=== PATIENT | female | born 1960 | race Caucasian/White ===

== ENCOUNTER → 2020-07-28 11:46 | Outpatient (CLI) | payer OTHER, MEDICAID, SELFPAY ==
--- NOTE | 2020-07-28 11:48 | DI.RAD.S_ITS ---
PROCEDURE: XR KNEE RT 3V INDICATIONS: medial/inferior aspect r/o bony abnormality TECHNIQUE: 3 views of the knee were acquired. COMPARISON: None. FINDINGS: Bones: No fractures or dislocations. No suspicious bony lesions. Mild tricompartmental osteoarthritis is seen more prominent in medial femoral tibial compartment. Soft tissues: Small joint effusion. Small calcification is seen within superficial soft tissue anterior to proximal patellar tendon and likely represent changes secondary to prior injury.. IMPRESSION: No acute right knee fracture or dislocation. Mild tricompartmental osteoarthritis. Small joint effusion. Dictated by: Petey Mccullough M.D. on 07/28/2020 at 12:28 Approved by: Petey Mccullough M.D. on 07/28/2020 at 12:29
== END ==
PROVIDERS: Referring Provider Physician Assistant; Visit Provider Physician Assistant
DX: M25.561 Pain in right knee (principal); M17.11 Unilateral primary osteoarthritis, right knee; M25.461 Effusion, right knee
CPT/HCPCS: 73562

== ENCOUNTER → 2020-08-18 08:50 | Outpatient (CLI) | payer OTHER, MEDICAID, SELFPAY ==
[2020-08-18 09:36] LABS: Add Manual Diff / Slide Review NO; Basophils Absolute Auto 0 /uL (0-100); Basophils Percent Auto 0.5 % (0-2); Eosinophils Absolute Auto 100 /uL (0-450); Eosinophils Percent Auto 1.6 % (2-4); Hematocrit 37.9 % (36-46); Hemoglobin 12.9 g/dL (12.0-16.0); Lymphocytes Absolute Auto 1600 /uL (1100-4500); Lymphocytes Percent Auto 27.4 % (25-40); Mean Corpuscular HGB Conc 34.1 % (30-36); Mean Corpuscular Hemoglobin 29.6 PG (26-34); Mean Corpuscular Volume 86.8 fL (80-100); Monocytes Absolute Auto 400 /uL (0-900); Monocytes Percent Auto 6.9 % (3-14); Neutrophils Absolute Auto 3700 /uL (1500-7000); Neutrophils Percent Auto 63.6 % (50-75); Platelet Count 321 X10^3/uL (150-400); Red Blood Cell Count 4.36 X10^6/uL (4.0-5.2); Red Cell Distribution Width 13.5 % (11.6-14.8); White Blood Cell Count 5.8 X10^3/uL (4.5-11.0)
[2020-08-18 10:22] LABS: Alanine Aminotransferase 19 IU/L (<35); Albumin 4.4 g/dL (3.5-5.0); Albumin Globulin Ratio 1.6 (1.0-2.8); Alkaline Phosphatase 75 U/L (38-126); Aspartate Aminotransferase 27 IU/L (14-36); BUN Creatinine Ratio 25.4 (6-22); Bilirubin Total 0.3 mg/dL (0.2-1.3); Blood Urea Nitrogen 16 mg/dL (7-17); Calcium 9.4 mg/dL (8.4-10.2); Carbon Dioxide 26 mmol/L (22-32); Chloride 105 mmol/L (98-107); Cholesterol 278 mg/dL (140-199); Estimated Glomerular Filt Rate > 60.0 mL/min (>60); Globulin 2.7 g/dL (1.7-4.1); Glucose 91 mg/dL (70-100); HDL Cholesterol 69 mg/dL (40-60); HEMOLYSIS < 15 (0-50); LDL Cholesterol Calculated 170 mg/dL (<100); Potassium 4.3 mmol/L (3.4-5.1); Sodium 138 mmol/L (137-145); Total Protein 7.1 g/dL (6.3-8.2); Triglycerides 193 mg/dL (35-150)
[2020-08-18 10:38] LABS: Free T4, Direct Thyroxine 0.96 ng/dL (0.78-2.19)
[2020-08-18 10:51] LABS: Thyroid Stimulating Hormone 4.68 uIU/mL (0.47-4.68)
== END ==
PROVIDERS: PCP Registered Nurse; Referring Provider Registered Nurse; Visit Provider Registered Nurse
DX: E78.5 Hyperlipidemia, unspecified (principal); F32.9 Major depressive disorder, single episode, unspecified; F41.9 Anxiety disorder, unspecified; F90.9 Attention-deficit hyperactivity disorder, unspecified type; L65.9 Nonscarring hair loss, unspecified; M25.561 Pain in right knee; Z82.49 Family history of ischemic heart disease and other diseases of the circulatory system
CPT/HCPCS: 36415; 80053; 80061; 84439; 84443; 85025

== ENCOUNTER → 2020-12-11 11:37 | Outpatient (CLI) | payer OTHER, MEDICAID, SELFPAY ==
[2020-12-11 12:54] LABS: Alanine Aminotransferase 21 IU/L (<35); Albumin 4.3 g/dL (3.5-5.0); Albumin Globulin Ratio 1.5 (1.0-2.8); Alkaline Phosphatase 79 U/L (38-126); Aspartate Aminotransferase 29 IU/L (14-36); Bilirubin Total 0.3 mg/dL (0.2-1.3); Blood Urea Nitrogen 16 mg/dL (7-17); Calcium 9.7 mg/dL (8.4-10.2); Carbon Dioxide 26 mmol/L (22-32); Chloride 107 mmol/L (98-107); Estimated Glomerular Filt Rate > 60.0 mL/min (>60); Globulin 2.9 g/dL (1.7-4.1); Glucose 117 mg/dL (70-100); HEMOLYSIS < 15 (0-50); Potassium 3.5 mmol/L (3.4-5.1); Sodium 141 mmol/L (137-145); Total Protein 7.2 g/dL (6.3-8.2)
== END ==
PROVIDERS: PCP Registered Nurse; Referring Provider Registered Nurse; Visit Provider Registered Nurse
DX: E78.5 Hyperlipidemia, unspecified (principal)
CPT/HCPCS: 36415; 80053

== ENCOUNTER → 2021-03-09 10:23 | Outpatient (CLI) | payer OTHER, MEDICAID, SELFPAY ==
[2021-03-09 12:20] LABS: Add Manual Diff / Slide Review NO; Basophils Absolute Auto 0 /uL (0-100); Basophils Percent Auto 0.4 % (0-2); Eosinophils Absolute Auto 100 /uL (0-450); Hematocrit 41.1 % (36-46); Hemoglobin 13.5 g/dL (12.0-16.0); Lymphocytes Absolute Auto 1200 /uL (1100-4500); Lymphocytes Percent Auto 21.5 % (25-40); Mean Corpuscular HGB Conc 32.9 % (30-36); Mean Corpuscular Hemoglobin 28.8 PG (26-34); Mean Corpuscular Volume 87.5 fL (80-100); Monocytes Absolute Auto 400 /uL (0-900); Monocytes Percent Auto 6.3 % (3-14); Neutrophils Absolute Auto 4100 /uL (1500-7000); Neutrophils Percent Auto 70.8 % (50-75); Platelet Count 338 X10^3/uL (150-400); Red Blood Cell Count 4.69 X10^6/uL (4.0-5.2); Red Cell Distribution Width 13.1 % (11.6-14.8); White Blood Cell Count 5.8 X10^3/uL (4.5-11.0)
[2021-03-09 13:12] LABS: Alanine Aminotransferase 20 IU/L (<35); Albumin 4.8 g/dL (3.5-5.0); Albumin Globulin Ratio 1.6 (1.0-2.8); Alkaline Phosphatase 70 U/L (38-126); Aspartate Aminotransferase 29 IU/L (14-36); BUN Creatinine Ratio 16.7 (6-22); Bilirubin Total 0.6 mg/dL (0.2-1.3); Blood Urea Nitrogen 12 mg/dL (7-17); Calcium 9.7 mg/dL (8.4-10.2); Carbon Dioxide 26 mmol/L (22-32); Chloride 101 mmol/L (98-107); Cholesterol 178 mg/dL (140-199); Estimated Glomerular Filt Rate > 60.0 mL/min (>60); Glucose 86 mg/dL (80-110); HDL Cholesterol 73 mg/dL (40-60); HEMOLYSIS 21 (0-50); LDL Cholesterol Calculated 86 mg/dL (<100); Potassium 3.9 mmol/L (3.4-5.1); Sodium 139 mmol/L (137-145); Total Protein 7.8 g/dL (6.3-8.2); Triglycerides 96 mg/dL (35-150)
== END ==
PROVIDERS: PCP Registered Nurse; Referring Provider Registered Nurse; Visit Provider Registered Nurse
DX: E78.5 Hyperlipidemia, unspecified (principal); Z82.49 Family history of ischemic heart disease and other diseases of the circulatory system; F32.9 Major depressive disorder, single episode, unspecified; F41.9 Anxiety disorder, unspecified
CPT/HCPCS: 36415; 80053; 80061; 85025

== ENCOUNTER → 2022-02-18 11:10 | Outpatient (CLI) | payer OTHER, MEDICAID, SELFPAY ==
[2022-02-18 12:34] LABS: Hematocrit 40.3 % (36-46); Hemoglobin 13.4 g/dL (12.0-16.0); Mean Corpuscular HGB Conc 33.2 % (30-36); Mean Corpuscular Hemoglobin 29.2 PG (26-34); Platelet Count 340 X10^3/uL (150-400); Red Blood Cell Count 4.58 X10^6/uL (4.0-5.2); Red Cell Distribution Width 13.5 % (11.6-14.8); White Blood Cell Count 5.5 X10^3/uL (4.5-11.0)
[2022-02-18 12:44] LABS: Alanine Aminotransferase 21 IU/L (<35); Albumin 4.6 g/dL (3.5-5.0); Albumin Globulin Ratio 1.6 (1.0-2.8); Alkaline Phosphatase 61 U/L (38-126); Aspartate Aminotransferase 26 IU/L (14-36); BUN Creatinine Ratio 13.9 (6-22); Bilirubin Total 0.3 mg/dL (0.2-1.3); Blood Urea Nitrogen 11 mg/dL (7-17); Calcium 9.2 mg/dL (8.4-10.2); Carbon Dioxide 25 mmol/L (22-32); Chloride 102 mmol/L (98-107); Cholesterol 179 mg/dL (140-199); Estimated Glomerular Filt Rate > 60 mL/min (>60); Globulin 2.9 g/dL (1.7-4.1); Glucose 86 mg/dL (80-110); HDL Cholesterol 68 mg/dL (40-60); HEMOLYSIS < 15 (0-50); LDL Cholesterol Calculated 98 mg/dL (<100); Potassium 3.8 mmol/L (3.4-5.1); Sodium 137 mmol/L (137-145); Total Protein 7.5 g/dL (6.3-8.2); Triglycerides 65 mg/dL (35-150)
[2022-02-18 20:09] LABS: TSH w/ Reflex to FT4 1.21 uIU/mL (0.47-4.68)
== END ==
PROVIDERS: PCP Registered Nurse Diabetes Educator; Referring Provider Registered Nurse Diabetes Educator; Visit Provider Registered Nurse Diabetes Educator
DX: Z00.00 Encounter for general adult medical examination without abnormal findings (principal); E78.5 Hyperlipidemia, unspecified
CPT/HCPCS: 36415; 80053; 80061; 84443; 85027

== ENCOUNTER 2022-05-21 10:44 | Emergency (ER) | payer OTHER, MEDICAID, SELFPAY ==
[2022-05-21 11:05] VITALS: BP 135/68; PULSE 68; RESP 19; TEMP 36.1; O2SAT 100; BMI 19.5
--- NOTE | 2022-05-21 11:10 | DI.RAD.S_ITS ---
PROCEDURE: XR KNEE LT 3V INDICATIONS: lump behind knee TECHNIQUE: 3 views of the knee were acquired. COMPARISON: None. FINDINGS: Bones: No fractures or dislocations. Moderate tricompartmental degenerative joint disease. There is a intramedullary sclerotic bone lesion in the distal femur compatible with an enchondroma or bone infarct. Soft tissues: No joint effusion. Probable intra-articular body in the anterior intercondylar notch. IMPRESSION: 1. Moderate tricompartmental degenerative joint disease. There may be an intra-articular body in the anterior knee joint. 2. An enchondroma or bone infarct in distal femur. Dictated by: Tom De Luna M.D. on 05/21/2022 at 11:49 Approved by: Tom De Luna M.D. on 05/21/2022 at 11:50
[2022-05-21 13:55] VITALS: TEMP 36.7
[2022-05-21 13:57] VITALS: BP 140/63; PULSE 59; O2SAT 100
--- NOTE | 2022-05-21 14:22 | ED.EXTPRO ---
HPI - Extremity Problem General Chief complaint: Extremity Problem,Nontraumatic Stated complaint: lump behind LT knee T-4 Time Seen by Provider: 05/21/22 13:54 Source: patient Mode of arrival: Family Vehicle History of Present Illness HPI Narrative: 62-year-old female presenting with left knee pain. Patient reports pain and associated small lump on the posterior aspect of the left knee. Patient noticed this days prior to presentation. Pain is constant, moderate, worse with movement. Patient continues to ambulate without significant difficulty. No fevers, no redness, patient is able to move the knee. No prior significant injury to the left knee noted. Related Data Home Medications Medication Instructions Recorded Confirmed naproxen sodium 220 mg tablet 220 mg PO BID PRN 12/11/20 02/26/22 (Flanax (naproxen)) ashwagandha root extract 300 mg mg PO 12/26/21 02/26/22 capsule cholecalciferol (vitamin D3) PO 12/26/21 02/26/22 coQ10 (ubiquinol) PO BID 12/26/21 02/26/22 lamotrigine 150 mg tablet 150 mg PO DAILY 12/26/21 02/26/22 tumeric 100 mg-jadyn 150 mg-olive cap PO BID 12/26/21 02/26/22 50 mg-oreg 150 mg-caprylate capsule Previous Rx's Medication Instructions Recorded atorvastatin 20 mg tablet 20 mg PO BEDTIME #90 tabs 02/26/22 Allergies Allergy/AdvReac Type Severity Reaction Status Date / Time No Known Drug Allergies Allergy Verified 05/21/22 11:09 Review of Systems Review of Systems Narrative: Constitutional, Eyes, ENT, Pulmonary, Cardiovascular, Gastrointestinal, Renal, Endocrine, Genitourinary, Musculoskeletal, Neurologic, Skin, and Psychiatric systems were reviewed and negative unless indicated in the HPI above. Patient History Medical History Alopecia Cervical cancer screening Dyslipidemia Fracture (~1994) Right knee pain Wears glasses Surgical History Anesthesia History of (~1984) History of elbow surgery (~1994) Status post breast reduction (~1990) [place] teeth removed (~1989) Family History Father History of heart disease Stroke Mother Stroke Social History Smoking Status: Former smoker Smoking Status: Former smoker alcohol intake frequency: holidays/special occasions only Substance Use Type: marijuana Exam Narrative Exam Narrative: Vitals reviewed. Nursing note reviewed Constitutional: interactive HENT: Moist mucous membranes EYES: No scleral icterus NECK: no masses CV: Well perfused peripherally, no cyanosis present PULM: Unlabored respirations, symmetric chest rise ABD: Non-distended MS: No gross deformities, no asymmetric edema noted, non irritable range of motion, no erythema or induration noted, localized soft tissue superficial swelling to the posterior aspect of the knee, seems most consistent with lipoma, no clear evidence of abscess, this small swelling is nontender to palpation SKIN: Warm and dry. PSYCH: Appropriate affect NEURO: Follows simple commands, moves extremities, interactive with exam Initial Vital Signs Initial Vital Signs: Vital Signs Temperature 97.0 F L 05/21/22 11:05 Pulse Rate 68 05/21/22 11:05 Respiratory Rate 19 05/21/22 11:05 Blood Pressure 135/68 05/21/22 11:05 Pulse Oximetry 100 05/21/22 11:05 Oxygen Delivery Method 05/21/22 11:05 Course Orders Ordered: ED Orders 05/21/22 11:10 XR knee LT 3V Stat Vital Signs Vital signs: Vital Signs - 8 hr 05/21/22 11:05 05/21/22 13:55 05/21/22 13:57 Temperature 97.0 F L 98.0 F Pulse Rate 68 59 L Respiratory Rate 19 Blood Pressure 135/68 140/63 Pulse Oximetry 100 100 Oxygen Delivery Method Room Air Room Air MDM - Extremity (Nontraumatic) MDM Narrative Medical decision making narrative: 62-year-old female presenting with left knee pain. On presentation, vitals reassuring. Physical exam notable for a well-appearing 62-year-old female who is in no acute distress, reassuring cardiac and pulmonary exam, benign abdomen, left knee with no significant swelling, no erythema, not irritable range of motion. Initial concern for osteoarthritis, inflammatory arthritis, septic arthritis, acute traumatic injury, overuse injury. Patient has no evidence of septic arthritis on bedside exam, has full nonirritable range of motion both passive and active. No evidence of cellulitis or abscess on bedside exam. Patient continued to be ambulatory. X-ray obtained and notable for enchondroma that is likely incidental, foreign body in the anterior aspect of the knee. Discussed findings with patient at bedside. Patient has no clear evidence of DVT on bedside exam given localized area of swelling to the posterior aspect of the knee, no upper or lower leg pain, no diffuse erythema or swelling. DVT ultrasound was therefore deferred to the outpatient setting. Discussed plan for follow up in the outpatient setting with PCP and Orthopedic surgery as needed. Patient was given return precautions regarding worsening symptoms. Discharge Plan Departure Patient Disposition: Home Clinical Impression: Arthritis of knee Instructions: DI for Knee Pain Activity Restrictions/Additional Instructions: *You have been diagnosed with knee pain. *What to do: * Please follow-up with your outpatient provider for reassessment, you may require additional imaging with ultrasound of your lower extremity if symptoms progress or worsen. * Please follow-up with your PCP regarding orthopedic surgery follow-up as needed. *Please follow up with your primary care provider in 2-3 days, call for an appointment. Let them know you were seen in the Emergency Department and that we ask that you be seen in follow up. We will electronically transmit a record of today's note if your PCP is in our system * Incidentally enchondroma noted on distal femur. Please follow up with your PCP regarding further workup. *If you do not have a primary care provider please contact the [facility] Resource line at [phone]. They will ask some questions about your medical history and help get you set up with a doctor in the community. *Return to Emergency Department if you should have any new, worsening or concerning symptoms, such as [fever greater than 101 F, shaking chills, worsening pain, persistent vomiting or other bothersome symptoms] Prescriptions: No Action ashwagandha root extract 300 mg capsule PO lamotrigine 150 mg tablet 150 mg PO DAILY cholecalciferol (vitamin D3) PO pszttsu-vdzw-epwiv-oreg-capryl 100 mg-150 mg- 50 mg-150 mg capsule PO BID coQ10 (ubiquinol) PO BID atorvastatin 20 mg tablet 20 mg PO BEDTIME Qty: 90 3RF naproxen sodium [Flanax (naproxen)] 220 mg tablet 220 mg PO BID PRN Referrals: Jorge Luis Sparks ARNP [Primary Care Provider] - Stand Alone Forms: Patient Portal/API
--- NOTE | 2022-05-21 15:03 | PC.NURSE ---
Patient reports swelling behind left knee and I think I have a spence's cyst.
== END 2022-05-21 15:04 | disposition home or self-care (01) ==
PROVIDERS: Emergency Provider Emergency Medicine; PCP Registered Nurse Diabetes Educator
DX: M17.12 Unilateral primary osteoarthritis, left knee (principal)
CPT/HCPCS: 73562; 99283

== ENCOUNTER → 2022-06-18 14:27 | Outpatient (CLI) | payer OTHER, MEDICAID, SELFPAY ==
--- NOTE | 2022-06-18 14:28 | DI.MG.S_ITS ---
BILATERAL DIGITAL SCREENING MAMMOGRAM 3D/2D WITH CAD: 06/18/2022 CLINICAL: Baseline exam. Routine screening. No prior exams were available for comparison. There are scattered areas of fibroglandular density in both breasts (category b / 25%-50% glandular tissue). Current study was also evaluated with a Computer Aided Detection (CAD) system. There are benign post operative findings in both breasts. No significant masses, calcifications, or other findings are seen in either breast. IMPRESSION: BENIGN There is no mammographic evidence of malignancy. A 1 year screening mammogram is recommended. Based on the Tyrer Cuzick model (a risk assessment model) the patient's lifetime risk is 8.3% and her 10 year risk is 3.5%. According to the ACR, ACS, and NCCN guidelines, an annual breast MRI exam along with mammogram is recommended if the patient's lifetime risk is 20% or greater. This exam was interpreted at Station ID: [id number]. NOTE: For mammograms, a report in lay terms will be sent to the patient. Approximately 15% of breast malignancies will not be visualized mammographically. In the management of a palpable breast mass, a negative mammogram must not discourage biopsy of a clinically suspicious lesion. Electronically Signed By: Ben houser/whitney:06/19/2022 09:56:58 letter sent: Normal Exam ACR BI-RADS Category 2: Benign Finding(s) [id number]
== END ==
PROVIDERS: PCP Registered Nurse Diabetes Educator; Referring Provider Registered Nurse Diabetes Educator; Visit Provider Registered Nurse Diabetes Educator
DX: Z12.31 Encounter for screening mammogram for malignant neoplasm of breast (principal)
CPT/HCPCS: 77063; 77067

== ENCOUNTER → 2023-06-24 09:48 | Outpatient (CLI) | payer OTHER, MEDICAID, SELFPAY ==
[2023-06-24 11:10] LABS: Hematocrit 39.7 % (36-46); Hemoglobin 13.5 g/dL (12.0-16.0); Mean Corpuscular Hemoglobin 30.8 PG (26-34); Mean Corpuscular Volume 90.4 fL (80-100); Platelet Count 282 X10^3/uL (150-400); Red Blood Cell Count 4.39 X10^6/uL (4.0-5.2); Red Cell Distribution Width 13.3 % (11.6-14.8); White Blood Cell Count 4.2 X10^3/uL (4.5-11.0)
[2023-06-24 12:38] LABS: Alanine Aminotransferase 27 IU/L (<35); Albumin 4.7 g/dL (3.5-5.0); Albumin Globulin Ratio 1.7 (1.0-2.8); Alkaline Phosphatase 51 U/L (38-126); Aspartate Aminotransferase 38 IU/L (14-36); BUN Creatinine Ratio 15.2 (6-22); Bilirubin Total 0.8 mg/dL (0.2-1.3); Blood Urea Nitrogen 10 mg/dL (7-17); Calcium 10.1 mg/dL (8.4-10.2); Carbon Dioxide 27 mmol/L (22-32); Chloride 104 mmol/L (98-107); Cholesterol 182 mg/dL (140-199); Estimated Glomerular Filt Rate > 60 mL/min (>60); Globulin 2.8 g/dL (1.7-4.1); Glucose 85 mg/dL (80-110); HDL Cholesterol 89 mg/dL (40-60); HEMOLYSIS 23 (0-50); LDL Cholesterol Calculated 74 mg/dL (<100); Potassium 4.1 mmol/L (3.4-5.1); Sodium 138 mmol/L (137-145); Total Protein 7.5 g/dL (6.3-8.2); Triglycerides 96 mg/dL (35-150)
[2023-06-24 13:04] LABS: TSH w/ Reflex to FT4 3.91 uIU/mL (0.47-4.68)
== END ==
LOC: LAB 09:53
PROVIDERS: PCP Registered Nurse Diabetes Educator; Referring Provider Registered Nurse Diabetes Educator; Visit Provider Registered Nurse Diabetes Educator
DX: E78.5 Hyperlipidemia, unspecified (principal)
CPT/HCPCS: 36415; 80053; 80061; 84443; 85027

== ENCOUNTER 2024-03-23 11:30 | Emergency (ER) | payer OTHER, MEDICAID, SELFPAY ==
[2024-03-23 11:38] VITALS: BP 155/71; PULSE 94; RESP 16; TEMP 36.9; O2SAT 99; BMI 20.2
--- NOTE | 2024-03-23 11:41 | DI.RAD.S_ITS ---
PROCEDURE: XR TOE LT MIN 2V INDICATIONS: injury TECHNIQUE: AP the foot and 2 views of the left 1st toe(s) acquired. COMPARISON: None. FINDINGS: Bones: Minimally displaced fracture of the 1st proximal phalange which extends into the interphalangeal joint. Soft tissues: No suspicious soft tissue densities. IMPRESSION: First proximal phalange fracture. Dictated by: Laura Fitzgerald MD, PhD on 03/23/2024 at 12:12 Approved by: Laura Fitzgerald MD, PhD on 03/23/2024 at 12:13
[2024-03-23 13:15] VITALS: BP 145/70; PULSE 85; RESP 18; O2SAT 99
--- NOTE | 2024-03-23 19:18 | ED_ITS ---
HPI - Extremity Injury (Lower) <Marli Comer PA-C - Last Filed: 03/23/24 19:22> General Chief Complaint: Extremity Injury, Lower Stated Complaint: L big toe injury Time Seen by Provider: 03/23/24 11:49 Source: patient Mode of arrival: Ambulatory History of Present Illness HPI Narrative: 64-year-old female presents to the ED with a left toe injury sustained 2-1/2 weeks ago. Patient states that she stubbed her foot on a tree root by accident, causing an injury. Patient states that her pain has been improving, however it is not fully resolved. Patient came in today to get some x-rays and get diagnosed. No numbness, tingling, weakness. Patient is able to bear weight and walk, although it is moderately painful to walk. Related Data Home Medications Medication Instructions Recorded Confirmed naproxen sodium 220 mg tablet 220 mg PO BID PRN 12/11/20 09/01/23 (Flanax (naproxen)) ashbeléndha root extract 300 mg mg PO 12/26/21 09/01/23 capsule cholecalciferol (vitamin D3) PO 12/26/21 09/01/23 coQ10 (ubiquinol) PO BID 12/26/21 09/01/23 lamotrigine 150 mg tablet 150 mg PO DAILY 12/26/21 09/01/23 turmeric 100 mg-jadyn 150 cap PO BID 12/26/21 09/01/23 mg-olive 50 mg-oreg 150 mg-capryl capsule methylphenidate HCl 10 mg tablet 10 mg PO DAILY 06/30/23 09/01/23 Previous Rx's Medication Instructions Recorded atorvastatin 20 mg tablet 20 mg PO BEDTIME #90 tabs 06/30/23 Allergies Allergy/AdvReac Type Severity Reaction Status Date / Time No Known Drug Allergies Allergy Verified 03/23/24 11:40 Review of Systems <Marli Comer PA-C - Last Filed: 03/23/24 19:22> Constitutional Constitutional: Denies chills, Denies fatigue, Denies fever(s), Denies frequent falls, Denies lethargy and Denies weakness Eyes Eyes: Denies change in vision, Denies eye discharge, Denies irritation and Denies loss of vision ENT Ears, Nose, Mouth, and Throat: Denies change in voice, Denies dizziness, Denies neck pain, Denies sore throat and Denies throat swelling Cardiovascular Cardiovascular: Denies chest pain, Denies irregular heart rhythm, Denies lightheadedness, Denies palpitations, Denies dyspnea, Denies dyspnea on exertion and Denies orthopnea Respiratory Respiratory: Denies cough, Denies dyspnea, Denies dyspnea on exertion and Denies wheezing Gastrointestinal Gastrointestinal: Denies abdominal pain, Denies change in bowel habits, Denies diarrhea, Denies nausea and Denies vomiting Musculoskeletal Musculoskeletal: Denies neck pain and Denies numbness Comments: Left big toe pain Integumentary/Breasts Skin/Breast: Denies pruritus, Denies erythema, Denies rash and Denies wounds Neurologic Neurologic: Denies behavioral changes, Denies confusion, Denies dizziness, Denies frequent falls, Denies loss of vision, Denies numbness and Denies weakness Psychiatric Psychiatric: Denies anxiety, Denies behavioral changes, Denies confusion, Denies depression, Denies homicidal ideation and Denies suicidal ideation Endocrine Endocrine: Denies fatigue, Denies flushing and Denies palpitations Hematologic/Lymphatic Hematologic/Lymphatic: Denies easy bruising Allergic/Immunologic Allergic/Immunologic: Denies urticaria, Denies throat swelling and Denies wheezing Patient History <Marli Comer PA-C - Last Filed: 03/23/24 19:22> Medical History Enchondroma of femur Dyslipidemia Cervical cancer screening Wears glasses Fracture (~1994) Alopecia Right knee pain Surgical History Anesthesia [place] teeth removed (~1989) History of (~1984) History of elbow surgery (~1994) Status post breast reduction (~1990) Family History Father History of heart disease Stroke Mother Stroke Social History Smoking Status: Never smoker Smoking Status: Never smoker alcohol intake frequency: holidays/special occasions only Substance Use Type: marijuana Exam <Marli Comer PA-C - Last Filed: 03/23/24 19:22> Narrative Exam Narrative: Const General:?cooperative, healthy appearing and comfortable HENMO Head:?normal to inspection Ears:?hearing grossly normal bilaterally Nose:?external nose normal Face and sinus:?normal facial exam and sinuses nontender Mouth:?oral mucosae normal Throat:?posterior oropharynx normal Eyes General:?appearance normal, both eyes and all related structures Neck Neck:?normal visual inspection and no lymphadenopathy noted Resp Effort & Inspection:?normal respiratory effort Auscultation:?clear to auscultation bilaterally Cardio Rate:?regular rate Rhythm:?regular rhythm Musculoskeletal Left big toe is mildly swollen compared to the right. No deformities. No bruising. Patient is able to bear weight and walk. Neurovascularly intact. Neuro General:?patient alert, patient awake and patient oriented x3 Initial Vital Signs Initial Vital Signs: Vital Signs Temperature 98.4 F 03/23/24 11:38 Pulse Rate 94 H 03/23/24 11:38 Respiratory Rate 16 03/23/24 11:38 Blood Pressure 155/71 H 03/23/24 11:38 Pulse Oximetry 99 03/23/24 11:38 Oxygen Delivery Method Room Air 03/23/24 11:38 <Ro Cruz DO - Last Filed: 03/26/24 07:10> Initial Vital Signs Initial Vital Signs: Vital Signs Temperature 98.4 F 03/23/24 11:38 Pulse Rate 94 H 03/23/24 11:38 Respiratory Rate 16 03/23/24 11:38 Blood Pressure 155/71 H 03/23/24 11:38 Pulse Oximetry 99 03/23/24 11:38 Oxygen Delivery Method Room Air 03/23/24 11:38 Course <Marli Comer PA-C - Last Filed: 03/23/24 19:22> Orders Ordered: ED Orders 03/23/24 11:41 XR toe LT min 2V Stat Vital Signs Vital signs: Vital Signs - 8 hr 03/23/24 11:38 03/23/24 13:15 Temperature 98.4 F Pulse Rate 94 H 85 Respiratory Rate 16 18 Blood Pressure 155/71 H 145/70 H Pulse Oximetry 99 99 Oxygen Delivery Method Room Air Room Air <DO Che Butler Last Filed: 03/26/24 07:10> Orders Ordered: ED Orders 03/23/24 11:41 XR toe LT min 2V Stat Vital Signs Vital signs: Vital Signs - 8 hr 03/23/24 11:38 03/23/24 13:15 Temperature 98.4 F Pulse Rate 94 H 85 Respiratory Rate 16 18 Blood Pressure 155/71 H 145/70 H Pulse Oximetry 99 99 Oxygen Delivery Method Room Air Room Air MDM - Extremity Injury (Lower) <Marli Comer PA-C - Last Filed: 03/23/24 19:22> MDM Narrative Medical decision making narrative: 64-year-old female presents to the ED with a left toe injury sustained 2-1/2 weeks ago. X-ray was obtained which shows a minimally displaced fracture of the 1st proximal phalange which extends into the interphalangeal joint. Physical exam is reassuring for no deformities. There is minimal swelling. Toe was roger-taped, hard boot fitted. Recommend follow-up with ortho. ED return precautions discussed with patient. Patient verbalized understanding. Medical records reviewed: Yes Discharge Plan Departure Patient Disposition: Home Clinical Impression: Fracture, toe Qualifiers: Encounter type: initial encounter Toe: great toe Fracture type: closed Phalanx: proximal Fracture alignment: displaced Laterality: left Qualified Code(s): S92.412A - Displaced fracture of proximal phalanx of left great toe, initial en counter for closed fracture Instructions: DI for Toe Fracture Activity Restrictions/Additional Instructions: You were evaluated in the ED today for a toe injury. Your x-ray does show a fracture of the big toe. Your toes have been roger-taped and you have been fitted into a hard boot to wear for the next 4 weeks. You may weight bear as tolerable. You may take Tylenol, ibuprofen for pain. You may follow-up with [facility] at [phone] if your symptoms do not improve in the next few days. Return to the ED if you have worsening symptoms such as numbness, tingling, weakness. Prescriptions: No Action ashwagandha root extract 300 mg capsule PO lamotrigine 150 mg tablet 150 mg PO DAILY cholecalciferol (vitamin D3) PO figmaywh-imqy-wjali-oreg-capry 100 mg-150 mg- 50 mg-150 mg capsule PO BID coQ10 (ubiquinol) PO BID naproxen sodium [Flanax (naproxen)] 220 mg tablet 220 mg PO BID PRN methylphenidate HCl 10 mg tablet 10 mg PO DAILY atorvastatin 20 mg tablet 20 mg PO BEDTIME Qty: 90 3RF Referrals: Jorge Luis Sparks ARNP [Primary Care Provider] - Stand Alone Forms: Patient Portal/API/Survey ED Sign-out <Ro Cruz DO - Last Filed: 03/26/24 07:10> Cosign ED Attending Cosignature Attestation: I was immediately available in the department for consultation.
== END 2024-03-23 13:15 | disposition home or self-care (01) ==
PROVIDERS: Emergency Provider Student in an Organized Health Care Education/Training Program; PCP Registered Nurse Diabetes Educator
DX: S92.412A Displaced fracture of proximal phalanx of left great toe, initial encounter for closed fracture (principal); X58.XXXA Exposure to other specified factors, initial encounter
CPT/HCPCS: 29550; 73660; 99283

== ENCOUNTER → 2024-09-11 08:47 | Outpatient (CLI) | payer OTHER, MEDICAID, SELFPAY ==
[2024-09-11 10:26] LABS: Hematocrit 40.7 % (36-46); Mean Corpuscular HGB Conc 34.4 % (30-36); Platelet Count 304 X10^3/uL (150-400); Red Blood Cell Count 4.52 X10^6/uL (4.0-5.2); Red Cell Distribution Width 12.6 % (11.6-14.8); White Blood Cell Count 7.2 X10^3/uL (4.5-11.0)
[2024-09-11 10:52] LABS: Alanine Aminotransferase 29 IU/L (<35); Albumin 4.6 g/dL (3.5-5.0); Albumin Globulin Ratio 2.2 (1.0-2.8); Alkaline Phosphatase 66 U/L (38-126); Aspartate Aminotransferase 38 IU/L (14-36); BUN Creatinine Ratio 19.7 (6-22); Bilirubin Total 0.6 mg/dL (0.2-1.3); Blood Urea Nitrogen 15 mg/dL (7-17); Carbon Dioxide 25 mmol/L (22-32); Chloride 105 mmol/L (98-107); Cholesterol 197 mg/dL (140-199); Estimated Glomerular Filt Rate > 60 mL/min (>60); Globulin 2.1 g/dL (1.7-4.1); Glucose 85 mg/dL (70-99); HDL Cholesterol 97 mg/dL (40-60); HEMOLYSIS < 15 (0-50); LDL Cholesterol Calculated 89 mg/dL (<100); Potassium 4.6 mmol/L (3.4-5.1); Sodium 137 mmol/L (137-145); Total Protein 6.7 g/dL (6.3-8.2); Triglycerides 53 mg/dL (35-150)
[2024-09-11 11:19] LABS: TSH w/ Reflex to FT4 2.33 uIU/mL (0.47-4.68)
== END ==
PROVIDERS: PCP Registered Nurse Diabetes Educator; Referring Provider Registered Nurse Diabetes Educator; Visit Provider Registered Nurse Diabetes Educator
DX: E78.5 Hyperlipidemia, unspecified (principal); I10 Essential (primary) hypertension
CPT/HCPCS: 36415; 80053; 80061; 84443; 85027

== ENCOUNTER → 2024-10-26 08:06 | Outpatient (CLI) | payer OTHER, SELFPAY ==
--- NOTE | 2024-10-26 08:07 | DI.US.S_ITS ---
PROCEDURE: US ABDOMEN LIMITED INDICATIONS: ELEVATED LIVER ENZYMES TECHNIQUE: Real-time scanning was performed of the abdominal and retroperitoneal organs, with image documentation. COMPARISON: None. FINDINGS: Liver: Liver is normal in size and heterogeneous in echotexture with multiple small hyperechoic lesions ranging in size from 0.5-1.4 centimeters. Gallbladder: No gallstones. No wall thickening. No pericholecystic edema. Negative sonographic Valderrama's sign. Biliary ducts: Intrahepatic bile ducts are non-dilated. Extrahepatic bile duct caliber measures 4.9 mm. Normal is 6-7 mm or less in diameter, or 10 mm or less post-cholecystectomy. Pancreas: Visualized portions of the pancreas are sonographically normal. Miscellaneous: No free abdominal fluid. IMPRESSION: Multiple hepatic hyperechoic lesions which may represent small hemangiomas. Recommend multiphase CT abdomen or MRI abdomen (hepatic protocol) for definitive characterization. Otherwise, unremarkable right upper quadrant ultrasound. Dictated by: Laura Fitzgerald MD, PhD on 10/26/2024 at 10:49 Approved by: Laura Fitzgerald MD, PhD on 10/26/2024 at 10:51
--- NOTE | 2024-10-26 08:07 | DI.MG.S_ITS ---
MM screening mammo BI: 10/26/2024. BI-RADS: 1 CLINICAL: 64-year old female for bilateral screening mammogram. Tyrer-Cuzick lifetime risk of 5.9%. No personal or first-degree family history of breast cancer. The patient is status-post reduction mammoplasty. PRIOR EXAMS 06/18/2022. MAMMOGRAPHY TECHNIQUE: 2D and 3D (tomosynthesis) digital mammographic views obtained, with additional images as needed for full coverage. Current study was also evaluated with a Computer Aided Detection (CAD) system. DENSITY C. The breasts are heterogeneously dense, which may obscure small masses. MAMMOGRAPHY FINDINGS Bilateral: No suspicious mass, asymmetry, microcalcification, or other abnormality seen. IMPRESSION: * No evidence of malignancy. RECOMMENDATIONS Bilateral * Annual screening mammography. OVERALL ASSESSMENT CATEGORY BI-RADS-1: Negative. The [employer] recommends annual screening mammography beginning at age 40 for women with average risk of breast cancer. ELECTRONICALLY SIGNED: Ben Canada M.D. on 10/26/2024 at 03:47:03 PM PT Interpreting Station ID: [id number]
== END ==
PROVIDERS: PCP Registered Nurse Diabetes Educator; Referring Provider Registered Nurse Diabetes Educator; Visit Provider Registered Nurse Diabetes Educator
DX: Z12.31 Encounter for screening mammogram for malignant neoplasm of breast (principal); R74.8 Abnormal levels of other serum enzymes; R92.333 Mammographic heterogeneous density, bilateral breasts
CPT/HCPCS: 76705; 77063; 77067

== ENCOUNTER → 2024-11-02 14:17 | Outpatient (CLI) | payer OTHER, SELFPAY ==
[2024-11-02 16:00] LABS: HEMOLYSIS < 15 (0-50); Iron 53 ug/dL (37-170)
[2024-11-02 16:11] LABS: Percent Iron Saturation 17 % (15-50); Total Iron Binding Capacity 308 ug/dL (265-497); Transferrin 280 mg/dL (206-381)
[2024-11-02 16:37] LABS: Ferritin 37 ng/mL (11-264)
== END ==
LOC: LAB 14:18
PROVIDERS: PCP Registered Nurse Diabetes Educator; Referring Provider Registered Nurse Diabetes Educator; Visit Provider Registered Nurse Diabetes Educator
DX: R74.8 Abnormal levels of other serum enzymes (principal)
CPT/HCPCS: 82728; 83540; 83550; 86803; 87340

== ENCOUNTER → 2024-11-07 14:04 | Outpatient (CLI) | payer OTHER, SELFPAY ==
--- NOTE | 2024-11-07 14:05 | DI.MRI.S_ITS ---
PROCEDURE: MR ABDOMEN LIVER PROTOCOL INDICATIONS: further eval hepatic lesions TECHNIQUE: Coronal HASTE, axial 2D FLASH in- and [id number]; axial breath-hold T2 FSE. Dynamic axial VIBE during the administration of contrast; post-contrast coronal VIBE or 2D FLASH with fat saturation from the hepatic dome to the iliac crests. Optional diffusion weighted imaging and ADC may be performed. COMPARISON: [facility], US, US ABDOMEN LIMITED, 10/26/2024, 8:50. FINDINGS: Image quality: Diagnostic Lower chest: Unremarkable lung bases Liver: Non cirrhotic liver contour. Multiple hemangiomas are present, with typical high T2 signal characteristics and delayed contrast accumulation, measuring up to 9 mm in segment 8 and 1.5 cm in segment 5. Multiple others are seen elsewhere, smaller in size. Gallbladder and biliary system: No biliary ductal dilation. No definite stones were seen on ultrasound. Suspected gallbladder folds are present. Pancreas: No ductal dilation Spleen: Nonenlarged Adrenals: No discrete nodules Kidneys: No solid renal mass. No hydronephrosis. Vessels and lymph nodes: The main portal vein is patent. No abdominal aortic aneurysm no enlarged lymph nodes by size criteria Bowel and peritoneum: No small bowel obstruction. There is moderate to large colonic fecal loading. No abscess or ascites Body wall: Unremarkable Bones: No aggressive appearing osseous abnormality. There are degenerative changes. IMPRESSION: Hepatic hemangiomas, benign. Non cirrhotic liver contour. Dictated by: Jose Alfredo Smith M.D. on 11/08/2024 at 8:29 Approved by: Jose Alfredo Smith M.D. on 11/08/2024 at 8:33
== END ==
LOC: MRI 14:04
PROVIDERS: PCP Registered Nurse Diabetes Educator; Referring Provider Registered Nurse Diabetes Educator; Visit Provider Registered Nurse Diabetes Educator
DX: D18.03 Hemangioma of intra-abdominal structures (principal); K76.9 Liver disease, unspecified
CPT/HCPCS: 74183; A9579